=== PATIENT | female | born 1995 | race American Indian/Alaskan Native ===

== ENCOUNTER 2022-02-14 15:18 | Inpatient (IN) | payer MEDICAID ==
[2022-02-14] MEDS ORDERED: LACTATED RINGERS 1,000 ML ONE (17:16)
[2022-02-14] MEDS ORDERED: CARBOPROST TROMETHAMINE 250 MCG/1 ML INJ IM PRN (17:57)
[2022-02-14] MEDS ORDERED: METHYLERGONOVINE MALEATE 0.2 MG/ML VIAL IM PRN (17:57)
[2022-02-14] MEDS ORDERED: NalbUPHINE 10 MG/1 ML INJ IV PRN (17:57)
[2022-02-14] MEDS ORDERED: ACETAMINOPHEN 325 MG TAB PO PRN (17:57)
[2022-02-14] MEDS ORDERED: miSOPROStol 200 MCG TAB PR PRN (17:57)
[2022-02-14] MEDS ORDERED: fentaNYL 100 MCG/2 ML INJ IV PRN (17:57)
[2022-02-14] MEDS ORDERED: LIDOCAINE (2%) 20 MG/1 ML VIAL 20 ML MDV INFILTRATI ONE (17:57)
[2022-02-14] MEDS ORDERED: MINERAL OIL 30 ML ORAL LIQD PO PRN (17:57)
[2022-02-14] MEDS ORDERED: LOPERAMIDE 2 MG CAP PO PRN (17:57)
[2022-02-14] MEDS ORDERED: OXYTOCIN 10 UNIT/1 ML INJ IM PRN (17:57)
[2022-02-14] MEDS ORDERED: ePHEDrine SULFATE 50 MG/1 ML INJ IV PRN (17:57)
[2022-02-14] MEDS ORDERED: ONDANSETRON 4 MG/2 ML INJ IV PRN (17:57)
[2022-02-14] MEDS ORDERED: BUTORPHANOL 2 MG/1 ML INJ IV PRN (17:57)
[2022-02-14] MEDS ORDERED: TERBUTALINE 1 MG/1 ML INJ SUB-Q PRN (17:57)
[2022-02-14] MEDS ORDERED: OXYTOCIN DRIP 30 UNITS/500 ML BAG IV SCH ×2 (18:00)
[2022-02-14] MEDS ORDERED: LACTATED RINGERS 1,000 ML IV SCH (18:00)
[2022-02-14] MEDS ORDERED: AMPICILLIN/NS 2 GM/100 ML 2 GM/100 ML BAG IV ONE (19:30)
--- NOTE | 2022-02-14 21:29 | History and Physical Report ---
History of Present Illness Date of examination: 02/14/22 Date of admission: 02/14/22 18:26 Chief complaint: Leakage of fluid History of present illness: 26-year-old G1, P0 at 37+4 weeks presents with gross rupture amniotic membranes. Patient reports that the fluid was clear. She reports irregular uterine contractions. records are unavailable for review at this time Past History Past Medical History: no pertinent history Past Surgical History: no surgical history Social history: single - Obstetrical History Expected Date of Delivery: 03/03/22 Actual Gestation: 37 Week(s) 4 Day(s) : 1 Para: 0 Hx # Term Pregnancies: 0 Number of Pregnancies: 0 Spontaneous Abortions: 0 Induced : 0 Number of Living Children: 0 Medications and Allergies Allergies Allergy/AdvReac Type Severity Reaction Status Date / Time No Known Allergies Allergy Unverified 02/14/22 15:57 Active Meds: Active Medications Acetaminophen (Acetaminophen 325 Mg Tab) 650 mg PO Q4H PRN PRN Reason: Pain, Mild (1-3) Butorphanol Tartrate (Butorphanol 2 Mg/1 Ml Inj) 2 mg IV Q2H PRN PRN Reason: Pain , Severe (7-10) Carboprost Tromethamine (Carboprost Tromethamine 250 Mcg/1 Ml Inj) 250 mcg IM ONCE PRN PRN Reason: Uterine Bleeding Ephedrine Sulfate (Ephedrine Sulfate 50 Mg/1 Ml Inj) 10 mg IV Q2M PRN PRN Reason: Hypotension Fentanyl (Fentanyl 100 Mcg/2 Ml Inj) 100 mcg IV Q2H PRN PRN Reason: Pain,Severe (7-10) LABOR PAIN Oxytocin/Sodium Chloride (Pitocin/Ns 30 Unit/500ml) 30 units in 500 mls @ 2 mls/hr IV TITR JOHN; Protocol Lactated Ringer's (Lactated Ringers) 1,000 mls @ 125 mls/hr IV DIRECT JOHN Oxytocin/Sodium Chloride (Pitocin/Ns 30 Unit/500ml) 30 units in 500 mls @ 40 mls/hr IV TITR JOHN; Protocol Ampicillin Sodium (Ampicillin/Ns 1 Gm/50 Ml) 1 gm in 50 mls @ 100 mls/hr IV Q4H JOHN; Protocol Loperamide HCl (Loperamide 2 Mg Cap) 2 mg PO ONCE PRN PRN Reason: give with Hemabate Methylergonovine Maleate (Methylergonovine Maleate 0.2 Mg/Ml Vial) 0.2 mg IM ONCE PRN PRN Reason: Uterine Bleeding Mineral Oil (Mineral Oil 30 Ml Oral Liqd) 30 ml PO QHS PRN PRN Reason: Constipation Misoprostol (Misoprostol 200 Mcg Tab) 800 mcg LA ONCE PRN PRN Reason: Uterine Bleeding Nalbuphine HCl (Nalbuphine 10 Mg/1 Ml Inj) 10 mg IV Q2H PRN PRN Reason: Pain, Moderate (4-6) Ondansetron HCl (Ondansetron 4 Mg/2 Ml Inj) 4 mg IV Q8H PRN PRN Reason: Nausea And Vomiting Oxytocin (Oxytocin 10 Unit/1 Ml Inj) 10 unit IM ONCE PRN PRN Reason: Uterine Bleeding Terbutaline Sulfate (Terbutaline 1 Mg/1 Ml Inj) 0.25 mg SUB-Q ONCE PRN PRN Reason: Hyperstimulation/Hypertonicity Review of Systems All systems: negative Genitourinary: leakage of fluid, contractions - Vital Signs Vital signs: Vital Signs Pulse Pulse Ox 97 H 99 02/14/22 16:45 02/14/22 16:45 Temp Pulse Resp BP Pulse Ox 99.5 F 95 H 138/81 99 02/14/22 20:38 02/14/22 21:09 02/14/22 21:08 02/14/22 21:09 - Physical Exam Breasts: Positive: deferred Cardiovascular: Regular rate Lungs: Positive: Clear to auscultation Abdomen: Positive: normal appearance Results All other labs normal. Assessment and Plan - Patient Problems (1) Spontaneous rupture of amniotic membranes Current Visit: Yes Status: Acute Plan to address problem: Admit to labor and delivery
[2022-02-14 22:07] LABS: Basophils % (Auto) 0.2 % (0.0-1.8); Eosinophils # (Auto) 0.1 K/mm3 (0.0-0.4); Eosinophils % (Auto) 0.8 % (0.0-4.3); Hematocrit 24.8 % (30.3-42.9); Hemoglobin 7.4 gm/dl (10.1-14.3); Lymphocytes % (Auto) 13.8 % (13.4-35.0); Mean Corpuscular HGB Conc 30 % (30-34); Monocytes # (Auto) 0.8 K/mm3 (0.0-0.8); Monocytes % (Auto) 5.5 % (0.0-7.3); Platelet Count 270 K/mm3 (140-440); Red Blood Count 3.86 M/mm3 (3.65-5.03)
[2022-02-14 22:11] LABS: Mean Corpuscular Volume 64 fl (79-97); Red Cell Distribution Width 20.7 % (13.2-15.2)
[2022-02-15] MEDS ORDERED: hydrALAZINE 20 MG/1 ML INJ IV ONE ×2 (01:23→04:52)
[2022-02-15] MEDS ORDERED: hydrALAZINE 20 MG/1 ML INJ ONE (04:56)
[2022-02-15] MEDS: AMPICILLIN/NS 1 GM/50 ML 1 GM/50 ML BAG IV SCH ×4 (05:30→18:47)
[2022-02-15] MEDS ORDERED: BUPIVACAINE/PF (0.25%) 2.5 MG/ML 10 ML VIAL INFILTRATI ONE (11:45)
--- NOTE | 2022-02-15 12:21 | Anesthesia Consultation ---
Anesthesia Consult and Med Hx Date of service: 02/15/22 - Airway Anesthetic Teeth Evaluation: Good ROM Head & Neck: Adequate Mental/Hyoid Distance: Adequate Mallampati Class: Class I Intubation Access Assessment: Probably Good - Pulmonary Exam CTA: Yes - Cardiac Exam Cardiac Exam: RRR - Pre-Operative Health Status ASA Pre-Surgery Classification: ASA2 Proposed Anesthetic Plan: Epidural - Pulmonary Hx Smoking: No Hx Asthma: No Hx Respiratory Symptoms: No SOB: No COPD: No Hx Sleep Apnea: No - Cardiovascular System Hx Hypertension: No - Central Nervous System Hx Seizures: No Hx Psychiatric Problems: No - Endocrine Hx Renal Disease: No Hx Hypothyroidism: No Hx Hyperthyroidism: No - Hematic Hx Anemia: No Hx Sickle Cell Disease: No - Other Systems Hx Alcohol Use: No Hx Obesity: Yes
--- NOTE | 2022-02-15 12:23 | Progress Note ---
Labor Epidural - Labor Epidural Start Time: 11:48 Stop Time: 12:07 Performed by:: NINFA EVERETT Procedure: Patient is requesting epidural for labor pain. Patient IDed, H&P reviewed, all questions and concerns were answered, and consent was signed. Timeout was performed at bedside. Patient in sitting position. Sterile prep and drape was performed. [3] ml of 1% lidocaine skin wheal at L[3]- L [4]. 18-gauge Tuohy epidural needle was advanced to loss of resistance with saline technique x1 attempt to 7cm. Negative CSF negative blood. Epidural catheter advanced to [12] centimeters. [NEGATIVE] Aspiration [NEGATIVE] test dose. Sterile dressing applied. Patient tolerated procedure.
[2022-02-15] MEDS: fentaNYL-BUPIV 2 MCG/ML-0.125% 200 MCG/100 ML BAG EPIDURAL SCH ×2 (12:44→20:22)
[2022-02-15] MEDS ORDERED: ePHEDrine SULFATE 50 MG/1 ML INJ IV PRN (13:00)
[2022-02-15] MEDS ORDERED: NALOXONE 2 MG/2 ML INJ IV PRN (13:00)
[2022-02-15] MEDS ORDERED: METOCLOPRAMIDE 10 MG/2 ML INJ IV ONE (21:09)
[2022-02-15] MEDS ORDERED: BICITRA ORAL LIQD 30ML PO ONE (21:09)
[2022-02-15] MEDS ORDERED: FAMOTIDINE 20 MG/2 ML INJ IV ONE (21:09)
--- NOTE | 2022-02-15 21:09 | Event Note ---
Date: 02/15/22 The patient experienced slow progression to complete dilatation. Even with adequate maternal effort there was no change in station of the fetus and minimal descent with pushing. The patient remained a +1 station with evidence of caput. The patient was counseled for primary delivery.
--- NOTE | 2022-02-15 21:10 | Procedure Note ---
OB Delivery Note - Delivery Date of Delivery: 02/15/22 Surgeon: SERGE MARI Estimated blood loss: other (qbl 702ml) - Section Preop diagnosis: arrest of descent Postop diagnosis: same section procedure: section, primary low transverse Disposition: PACU Complications: none - A at 1 minute: 8 at 5 minutes: 9 Infant Gender: Male (Weight 6 pounds 14 ounces)
[2022-02-15] MEDS ORDERED: LANOLIN/ZINC/DIMETHICONE (LANSINOH) 7 GM TP PRN (21:11)
[2022-02-15] MEDS ORDERED: NALOXONE 0.4 MG/1 ML INJ IV PRN (21:11)
[2022-02-15] MEDS ORDERED: WITCH HAZEL/ GLYCERIN PAD TP PRN (21:11)
--- NOTE | 2022-02-15 21:11 | Operative Report ---
Operative Report Operative Report: Date of surgery: February 15, 2022 Preoperative diagnosis: at 37+5 weeks; spontaneous rupture membranes; arrest of descent Postoperative diagnosis: Same as above Procedure: Primary low transverse delivery Surgeon: Fabiana Beverly M.D. Anesthesia: Regional Estimated blood loss:Qbl 702ml IV fluids: 2600 mL Urine output: 300 mL Findings: Liveborn male with Apgars of 8 and 9 weight 6 pounds 14 ounces Indications: 26-year-old G1, P0 at 37+5 weeks who presents with spontaneous rupture membranes. Her intrapartum course was complicated by arrest of descent disorder despite adequate contractility. Procedure: The patient was taken to the operating room and given regional anesthesia without complication. She was prepped and draped in a normal sterile fashion. A Pfannenstiel skin incision was made down to layer the fascia which was nicked in the midline extended laterally with the Bovie cautery. The superior aspect of the rectus fascia was grasped with Brian clamps x2 and the rectus muscles off sharply. This was done in inferior fashion as well. The rectus muscle midline and peritoneum entered bluntly. An Sd retractor was then inserted. A bladder blade was placed. The vesicouterine peritoneum was then entered sharply with Metzenbaum scissors. A bladder flap was created digitally. A low transverse uterine incision was then made and extended digitally. There was clear fluid upon entry into the uterine cavity. The head was noted to be deeply seated in the pelvis. The head was delivered through the incision with fundal pressure. The cord was clamped and cut x2 and was passed off to pediatrics. The placenta was then manually extracted. The uterus was then exteriorized and cleared of clots and debris. The uterine incision was then closed in a running locked fashion with 0 Vicryl additional imbricating stitch was applied for 2 layer closure. There was noted to be a deep sulcus tear that had to be repaired with a running locked fashion with 0 Vicryl. The posterior cul-de-sac was then copiously irrigated. The uterus was replaced back into the abdomen and pelvis were the gutters were then irrigated. The Sd retractor was then removed. The peritoneum was then reapproximated with 3-0 Vicryl incorporating the rectus muscle. The fascia was then closed with 0 Vicryl in a running fashion. The skin was then reapproximated with 3-0 Monocryl on a Adam needle subcuticular fashion. Steri-Strips to place across the incision and a Crede procedures performed at the end of the surgery. A pressure dressing was applied to the incision. The surgery productive of a liveborn male with Apgars of 8 and 9 weight 6 pounds 14 ounces. The patient was taken to the recovery room in stable condition. All sponge laps and needle counts correct x2.
[2022-02-15] MEDS ORDERED: MORPHINE 4 MG/1 ML INJ IV PRN (21:12)
[2022-02-15] MEDS ORDERED: IBUPROFEN 600 MG TAB PO PRN (21:12)
[2022-02-15] MEDS ORDERED: ACETAMINOPHEN 325 MG TAB PO PRN (21:12)
[2022-02-15] MEDS ORDERED: SIMETHICONE 80 MG CHEW TAB PO PRN (21:12)
[2022-02-15] MEDS ORDERED: MAGNESIUM HYDROXIDE (MOM) ORAL LIQD UDC PO PRN (21:12)
[2022-02-15] MEDS ORDERED: KETOROLAC 30 MG/1 ML INJ IV PRN (21:12)
[2022-02-15] MEDS ORDERED: LACTATED RINGERS 1,000 ML IV SCH (21:15)
--- NOTE | 2022-02-15 21:23 | Anesthesia Day of Surgery ---
Anesthesia Day of Surgery - Day of Surgery Patient Examined: Yes Patient H&P Reviewed: Yes Patient is NPO: Yes
[2022-02-15] MEDS ORDERED: BUPIVACAINE/PF (0.5%) 5 MG/1 ML 10 ML VIAL INFILTRATI ONE (21:27)
[2022-02-15] MEDS ORDERED: BUPIVACAINE/PF (0.5%) 5 MG/1 ML 30 ML VIAL INFILTRATI ONE (21:51)
[2022-02-15] MEDS ORDERED: ONDANSETRON 4 MG/2 ML INJ ONE (21:53)
[2022-02-15] MEDS ORDERED: LACTATED RINGERS 1,000 ML ONE ×2 (21:53→22:35)
[2022-02-15] MEDS ORDERED: D5W/LACTATED RINGERS 1,000 ML IV SCH (22:00)
[2022-02-15] MEDS ORDERED: OXYTOCIN DRIP 30 UNITS/500 ML BAG IV SCH ×2 (22:00)
[2022-02-15] MEDS ORDERED: ceFAZolin/Water 2 GM/20 ML 2 GM/20 ML SYRINGE IV NR (22:00)
[2022-02-16] MEDS: oxyCODONE /ACETAMINOPHEN 5-325MG TAB PO PRN ×3 (09:35→23:56)
[2022-02-16 11:30] LABS: Hematocrit 24.6 % (30.3-42.9)
--- NOTE | 2022-02-16 14:49 | Post Anesthesia Evaluation ---
- Post Anesthesia Evaluation Patient Participated: Yes Airway Patent: Yes Stable Respiratory Function: Yes Nausea/Vomiting: No Temp > 96.8F: Yes Pain Manageable: Yes Adequeate Hydration: Yes Anesthesia Complications: No Block Receding Appropriately: Yes Patient on Ventilator: No
[2022-02-17] MEDS: oxyCODONE /ACETAMINOPHEN 5-325MG TAB PO PRN ×2 (08:24→22:42)
--- NOTE | 2022-02-17 12:30 | Progress Note ---
Assessment and Plan Postop day 2 status post LTCS doing well. Patient now has developed intermittent high blood pressure. Will begin on labetalol 100 mg twice daily for blood pressure control if pressure remains stable, will plan for discharge on tomorrow. Subjective - Subjective Date of service: 02/17/22 Interval history: Post op day 2 status post L TCS 11 October for this 1 para 1 patient. Patient has no complaints. She denies headache chest pain or shortness of breath. Patient had some episodes of elevated blood pressure throughout yesterday evening and overnight. Her pain is well controlled. She has passed flatus. She is tolerating p.o. without difficulty. Patient reports: appetite normal, voiding normally, pain well controlled, ambulating normally [place]: doing well Objective - Vital Signs Latest vital signs: Vital Signs Temp Pulse Resp BP BP Pulse Ox Pulse Ox 02/17/22 11:54 98 F 98 H 20 138/83 99 02/17/22 08:28 98.7 F 99 H 20 143/84 99 02/17/22 08:24 16 02/17/22 04:58 97 H 162/91 02/17/22 00:25 97.9 F 100 H 20 148/88 96 02/16/22 20:36 98.1 F 97 H 20 139/83 97 02/16/22 20:10 98 02/16/22 18:00 99 02/16/22 16:26 99 02/16/22 15:24 98.8 F 104 H 18 146/92 99 02/16/22 14:44 99 Intake and Output 02/16/22 02/17/22 02/17/22 22:59 06:59 14:59 Intake Total 600 600 600 Output Total 450 Balance 150 600 600 Intake: Oral 360 360 600 Intake, Free Water 240 240 Output: Urine 450 Void 450 Other: Total, Intake Amount 240 360 360 Total, Output Amount 200 # Voids Void 1 1 1 - Exam Breasts: Present: deferred Cardiovascular: Present: Regular rate, Normal S1, Normal S2 Lungs: Present: Clear to auscultation, Normal air movement Abdomen: Present: normal appearance, soft, normal bowel sounds Vulva: both: normal Uterus: Present: normal, firm Extremities: Present: normal Incision: Present: normal, dry, intact
[2022-02-18] MEDS ORDERED: MEASLES, MUMPS & RUBELLA 12,500 UNIT/0.5 ML VACCINE SUB-Q ONE (09:00)
[2022-02-18] MEDS: oxyCODONE /ACETAMINOPHEN 5-325MG TAB PO PRN (09:32)
--- NOTE | 2022-02-18 11:36 | Progress Note ---
Subjective - Subjective Interval history: Post op day 2 status post L TCS 11 October for this 1 para 1 patient. Patient has no complaints. She denies headache chest pain or shortness of breath. Patient had some episodes of elevated blood pressure throughout yesterday evening and overnight. Her pain is well controlled. She has passed flatus. She is tolerating p.o. without difficulty. Objective - Vital Signs Latest vital signs: Vital Signs Temp Pulse Resp BP BP Pulse Ox Pulse Ox 02/18/22 09:32 104 H 157/82 02/18/22 08:54 98.7 F 104 H 20 157/82 100 02/18/22 08:49 96 02/18/22 01:29 98.5 F 107 H 20 138/79 96 02/17/22 22:40 88 147/89 02/17/22 22:09 104 H 147/89 99 02/17/22 20:45 100 02/17/22 17:08 99.0 F 93 H 20 142/90 99 02/17/22 13:59 16 02/17/22 11:54 98 F 98 H 20 138/83 99 Intake and Output 02/17/22 02/18/22 02/18/22 22:59 06:59 14:59 Intake Total 120 600 440 Balance 120 600 440 Intake: Oral 120 240 440 Intake, Free Water 360 Other: Total, Intake Amount 120 240 320 # Voids Indwelling Catheter 1 Void 1 1 1
--- NOTE | 2022-02-18 11:39 | Discharge Summary ---
Providers - Providers Date of Admission: 02/14/22 18:26 Date of discharge: 02/18/22 Attending physician: ZOEY SINGH Primary care physician: MECHANICAL MANAGER Hospitalization Reason for admission: active labor Delivery: Procedure: primary low transverse Episiotomy: none Incision: normal, dry, intact complications: other (elevated blood pressure) Discharge diagnosis: IUP at term delivered [place] baby: male Condition at discharge: Stable Disposition: 01 HOME / SELF CARE / HOMELESS Plan - Discharge Medications Prescriptions: Docusate Sodium [Colace] 100 mg PO BID #60 capsule Ferrous Sulfate [Feosol 325 MG tab] 325 mg PO BID #60 tablet labetaloL [Labetalol 100mg TAB] 100 mg PO BID #60 Ibuprofen [Motrin] 800 mg PO Q8HR PRN #40 tablet PRN Reason: Pain, Mild (1-3) oxyCODONE /ACETAMINOPHEN [Percocet 5/325] 2 tab PO Q6HR PRN #40 tablet PRN Reason: Pain - Provider Discharge Summary Activity: routine, no sex for 6 weeks, no heavy lifting 4 weeks, no strenuous exercise Diet: routine Instructions: routine Additional instructions: [] Smoking cessation referral if applicable(refer to patient education folder for contact #) [] Refer to [facility]'s [facility] Booklet Call your doctor immediately for: * Fever > 100.5 * Heavy vaginal bleeding ( >1 pad per hour) * Severe persistent headache * Shortness of breath * Reddened, hot, painful area to leg or breast * Drainage or odor from incision. * Keep incision clean and dry at all times and follow doctor's instructions regarding bathing/showering Take Labetalol as 2 tabs in the morning and 2 in the evening Follow up with Dr Singh in 1 week! - Follow up plan Follow up: KENDALL JONES MD [Primary Care Provider] - 7 Days ZOEY SINGH MD [Staff Physician] - 7 Days
[2022-02-18 13:54] VITALS: BP 135/80
== END 2022-02-18 13:35 | disposition home or self-care (01) | DRG 766 ==
LOC: APU 15:18 → TRG 15:18 → LD 17:42 → TRG 18:25 → LD 18:26 → OB 02-16 00:39
PROVIDERS: ADMIT Obstetrics & Gynecology; ATTEND Obstetrics & Gynecology
PROC: 10D00Z1 Extraction of Products of Conception, Low, Open Approach (ICD-10-PCS; principal; 2022-02-15)
DX: O62.1 Secondary uterine inertia (principal); O99.02 Anemia complicating childbirth; Z3A.37 37 weeks gestation of pregnancy; Z37.0 Single live birth; Z20.822 Contact with and (suspected) exposure to COVID-19; Z23 Encounter for immunization
CPT/HCPCS: 36415; 85014; 85018; 85025; 86592; 86850; 86900; 86901; 90707; 99211; G0378; J3490; G0463; J0290; J0360; J0595; J1885; J2270; J2405; J2590; J2765; J7120; U0003